=== PATIENT | male | born 1950 | race Caucasian/White ===

== ENCOUNTER 2021-02-10 22:00 | IRF | payer OTHER, SELFPAY ==
--- NOTE | 2021-02-10 23:05 | ADMGEN ---
This patient, Alhaji Paige, was admitted to [facility] Room 226-02 @ 2200. Patient/family oriented to hospital policies and general routines including ID bracelet, bed and alarms, visiting hours, pain management, procedures, bathroom and other care routines, personal items, smoking policy, room service/diet, and visiting hours. Information on how to activate the Rapid Response Team has been discussed. Patient/Family are encouraged to report perceived risks to care and to ask questions if they do not understand what they are told or what they should do.
[2021-02-10 23:09] VITALS: BP 132/53; PULSE 77; RESP 16; TEMP 36.3; O2SAT 100
[2021-02-10 23:10] VITALS: BMI 18.6
[2021-02-10 23:18] VITALS: BP 132/53; PULSE 77; RESP 16; TEMP 36.3; O2SAT 100; BMI 18.6
[2021-02-11] VITALS: PULSE 77; RESP 16; O2SAT 100
[2021-02-11 05:54] LABS: Basophils Percent Auto 0.4 % (0.2-1.2); Eosinophils Absolute Auto 0.2 K/mm3 (0-0.3); Eosinophils Percent Auto 2.2 % (0-4.4); Hematocrit 26.9 % (42.0-52.0); Hemoglobin 8.3 g/dL (14.0-18.0); Immature Granulocyte Absolute 0.06 K/mm3 (0.00-0.031); Immature Granulocyte Percent A 0.8 % (0-0.5); Lymphocytes Absolute Auto 1.38 K/mm3 (0.9-3.2); Lymphocytes Percent Auto 19.1 % (18.3-44.2); Mean Corpuscular HGB Conc 30.9 g/dl (32-36); Mean Corpuscular Volume 90.9 fl (80-100); Mean Platelet Volume 9.2 fl (7.4-10.4); Monocytes Absolute Auto 0.8 K/mm3 (0.1-0.6); Monocytes Percent Auto 11.6 % (2.6-8.5); Neutrophils Absolute Auto 4.8 K/mm3 (1.3-6.7); Neutrophils Percent Auto 65.9 % (45.5-73.1); Platelet Count Result 345 k/mm3 (150-375); Red Blood Count 2.96 M/mm3 (4.6-6.20); Red Cell Distribution Width 14.1 % (11.5-14.5); White Blood Count 7.2 K/mm3 (4.5-10.0)
[2021-02-11 06:00] VITALS: BP 140/56; PULSE 79; RESP 16; TEMP 36.9; O2SAT 100
[2021-02-11 06:07] LABS: Glucose Point of Care 344 (65-105)
[2021-02-11 06:14] LABS: Albumin Level 2.6 g/dL (3.5-5.1)
[2021-02-11 06:15] LABS: Alanine Aminotransferase 16 U/L (4-50); Alkaline Phosphatase 134 U/L (38-126); Anion Gap 0 mmol/L (8-16); Aspartate Amino Transferase 40 U/L (17-59); Bilirubin,Total < 0.1 mg/dL (0.2-1.3); Blood Urea Nitrogen 23 mg/dL (9-20); Calcium 8.2 mg/dL (8.4-10.2); Carbon Dioxide 33 mmol/L (22-30); Chloride 104 mmol/L (98-107); Estimated CRCL calculation 19 ml/min; Estimated Glomerular Filt Rate 26; Glucose 339 mg/dL (75-110); Potassium 4.2 mmol/L (3.4-5.0); Sodium 137 mmol/L (137-145)
[2021-02-11 06:31] LABS: Hemoglobin A1C 11.3 % (<5.7)
[2021-02-11 08:00] VITALS: PULSE 79; RESP 16; O2SAT 100
[2021-02-11] MEDS: CARBIDOPA/LEVODOPA 10/100 MG TABLET 1 TABLET PO ×3 (08:38→17:23)
[2021-02-11] MEDS: glipiZIDE 5 MG TABLET PO ×2 (08:38→17:23)
[2021-02-11] MEDS: ATORVASTATIN 10 MG TABLET PO (08:38)
[2021-02-11] MEDS: ASPIRIN 81 MG ENTERIC TABLET PO (08:38)
[2021-02-11] MEDS: PANTOPRAZOLE SOD SESQUIHYDRATE 20 MG TAB PO (08:38)
--- NOTE | 2021-02-11 08:45 | WPDREHABHP ---
H&P: HPI History of Present Illness Date/Time: 02/11/21 08:45 Chief Complaint: right below-knee amputation Narrative: HISTORY OF PRESENT ILLNESS: The patient's primary rehab impairment category is amputation lower extremity The etiologic diagnosis is right critical lower limb ischemia I saw this patient [id number] on 02/11/2021 The patient is a 71-year-old male with past medical history of peripheral vascular disease, diabetes mellitus, Parkinson's disease, and coronary artery disease who presented to [facility] on 02/02/2021 with increasing pain to his right great toe. Patient sustained a crush injury approximately 5 months ago causing a nonhealing wound. Patient was placed on clindamycin. CTA abdominal aorta with runoff on 11/01/2020 showed severe stenosis in the right proximal and distal S FA with long segment moderate and severe stenosis in the popliteal artery below the knee joint. All 3 runoff vessels were noted to be severely atherosclerotic. Anterior tibial and peroneal arteries were occluded proximally with some distal reconstitution. Disease was also noted on the left lower extremity but was less severe. Vascular surgery was consulted and the patient was scheduled for a right below-knee amputation. He underwent surgical intervention on 02/04/[address] Ritchie. Hospital course: endocrinology was consulted for hemoglobin A1c over 12, blood glucose monitoring and insulin adjusted accordingly. PM& R was consulted with recommendations of inpatient rehab. GI was consulted secondary acute anemia patient underwent upper and lower GI scopes which were unremarkable. Patient remained hemodynamically stable. No DVT prophylaxis in light of acute anemia was noted but patient is transferred on baby aspirin. Therapy was initiated at the acute care facility and the patient transferred to us from [facility] on 02/10/2021 FALLS OR SURGERIES: The patient has had major surgeries in the 100 days prior to admission. Alhaji has had no falls nor injuries in the past year. COVID: The patient has not traveled outside the [place] or had contact with someone who is ill that has traveled outside the [place] in the past 21 days. Patient has not traveled to an area of the [place] that is experiencing no transmission of the Coronavirus and has not had close personal contact with anyone that has. Patient does not have a fever the patient is not experiencing lower respiratory illness. PRIOR LEVEL OF FUNCTION: Eating was [INDEPENDENT] Oral Care was [INDEPENDENT] Toileting Hygiene was [INDEPENDENT] Shower/Bathing was [INDEPENDENT] Upper Body Dressing was [INDEPENDENT] Lower Body Dressing was [INDEPENDENT] Donning/[place] Footwear was [INDEPENDENT] Rolling Left and Right was [INDEPENDENT] Sit to Lying was [INDEPENDENT] Lying to Sitting was [INDEPENDENT] Sit to Stand was [INDEPENDENT] Bed to Chair Transfers was [INDEPENDENT] Toilet Transfers was [INDEPENDENT] Walking was [INDEPENDENT] [>500 feet] with [NO DEVICE] Wheelchair Mobility was [NOT APPLICABLE PRIOR TO ADMISSION] Stairs were [INDEPENDENT] CURRENT LEVEL OF FUNCTION: Eating was Independent Oral Care was supervision Toileting Hygiene was dependent Shower/Bathing was partial to moderate assist Upper Body Dressing was partial to moderate assist Lower Body Dressing was partial to moderate assist Donning/[place] Footwear was substantial to max assist Rolling Left and Right was partial to moderate Sit to Lying was partial to moderate Lying to Sitting was partial to moderate Sit to Stand was partial to moderate assist Bed to Chair Transfers were partial to moderate assist Toilet Transfers were partial to moderate assist Walking was 4 ft with roller walker and partial to moderate assist Wheelchair Mobility was supervision at 100 ft Stairs were not tested GOALS: Our therapists will evaluate the patient and establish the goals. However, upon pre-
[2021-02-11 12:08] LABS: Glucose Point of Care 313 (65-105)
[2021-02-11 14:00] VITALS: BP 162/65; PULSE 85; RESP 18; TEMP 36.2; O2SAT 100
[2021-02-11 17:02] LABS: Glucose Point of Care 268 (65-105)
[2021-02-11 20:35] VITALS: PULSE 93; RESP 18; O2SAT 98
[2021-02-11] MEDS: INSULIN GLARGINE (*BKC) 100 UNITS/ML 15 UNITS SUB-Q (20:40)
[2021-02-11 21:18] LABS: Glucose Point of Care 252 (65-105)
[2021-02-11 22:00] VITALS: BP 145/65; PULSE 93; RESP 18; TEMP 36.1; O2SAT 98
[2021-02-12 05:35] VITALS: BP 154/67; PULSE 78; RESP 16; TEMP 36.7; O2SAT 99
[2021-02-12 06:22] LABS: Glucose Point of Care 126 (65-105)
[2021-02-12 07:09] LABS: Glucose Point of Care 145 (65-105)
[2021-02-12] MEDS: CARBIDOPA/LEVODOPA 10/100 MG TABLET 1 TABLET PO ×3 (10:14→18:16)
[2021-02-12] MEDS: ASPIRIN 81 MG ENTERIC TABLET PO (10:15)
[2021-02-12] MEDS: glipiZIDE 5 MG TABLET PO ×2 (10:15→18:16)
[2021-02-12] MEDS: PANTOPRAZOLE SOD SESQUIHYDRATE 20 MG TAB PO (10:15)
[2021-02-12] MEDS: ATORVASTATIN 10 MG TABLET PO (10:15)
[2021-02-12] MEDS: HYDROcodone/acetaminophen (*CRX) 5-325 MG TABLET 1 TAB PO ×2 (10:17→21:11)
--- NOTE | 2021-02-12 10:43 | WPDNEURORHBP ---
Subjective Date/time seen: 02/12/21 10:43 Interval history: Chief Complaint: right below-knee amputation HISTORY OF PRESENT ILLNESS: The patient is a 71-year-old male with past medical history of peripheral vascular disease, diabetes mellitus, Parkinson's disease, and coronary artery disease who presented to [facility] on 02/02/2021 with increasing pain to his right great toe. Patient sustained a crush injury approximately 5 months ago causing a nonhealing wound. Patient was placed on clindamycin. CTA abdominal aorta with runoff on 11/01/2020 showed severe stenosis in the right proximal and distal SFA with long segment moderate and severe stenosis in the popliteal artery below the knee joint. All 3 runoff vessels were noted to be severely atherosclerotic. Anterior tibial and peroneal arteries were occluded proximally with some distal reconstitution. Disease was also noted on the left lower extremity but was less severe. Vascular surgery was consulted and the patient was scheduled for a right below-knee amputation. He underwent surgical intervention on 02/04/[address] Ritchie. Hospital course: endocrinology was consulted for hemoglobin A1c over 12, blood glucose monitoring and insulin adjusted accordingly. PM& R was consulted with recommendations of inpatient rehab. GI was consulted secondary acute anemia patient underwent upper and lower GI scopes which were unremarkable. Patient remained hemodynamically stable. No DVT prophylaxis in light of acute anemia was noted but patient is transferred on baby aspirin. Therapy was initiated at the acute care facility and the patient transferred to us from [facility] on 02/10/2021 Patient admits to not taking insulin at home. Will obtain community nutrition educator. Review of Systems Review of Systems: All systems reviewed & are unremarkable except as noted in HPI and below Functional Status Ambulation Ability Ambulation Assistive Devices: Walker, Wheeled Transfers Ability Ability to Transfer In/Out of Chair: Minimum Assistance X 1 Exam Narrative: Exam Narrative: patient is seen resting comfortably in bed. Head is normocephalic. Extraocular muscles are intact. Speech is fluent. Heart rate rhythm regular. Lungs are clear to auscultation. Abdomen is soft nontender. Left hand and left lower extremity tremors are noted. Tremors noted to lips. Right upper and right lower extremity demonstrated no tremors. Bilateral upper extremity strength are 4+ out of 5. Left lower extremity strength 4/5. Numbness is noted to the left foot plantar area. Patient is alert and oriented x4. Patient at supervision with s/c propulsion Objective Data Vital Signs Vital Signs: Vital Signs - 24 hr 02/11/21 14:00 02/11/21 20:35 02/11/21 22:00 Temperature 36.2 C L 36.1 C L Pulse Rate 85 93 93 Respiratory Rate 18 18 18 Blood Pressure 162/65 H 145/65 H Pulse Oximetry 100 98 98 02/12/21 05:35 Temperature 36.7 C Pulse Rate 78 Respiratory Rate 16 Blood Pressure 154/67 H Pulse Oximetry 99 Intake/Output Intake/Output: Intake & Output 02/09/21 02/10/21 02/11/21 02/12/21 23:59 23:59 23:59 23:59 Intake Total 720 240 Balance 720 240 Meds/Results Medications: Active Medications Generic Name Dose Route Start Last Admin Trade Name Freq PRN Reason Stop Dose Admin Hydrocodone Bitart/Acetaminophen 1 tab 02/10/21 23:49 02/12/21 10:17 Hydrocodone/Acetaminophen (*Crx) 5-325 Mg Tablet PO 1 tab Q6H PRN Administration Pain Rated 4-6 Aspirin 81 mg 02/11/21 09:00 02/12/21 10:15 Aspirin 81 Mg Enteric Tablet PO 03/13/21 09:01 81 mg DAILY KEN Administration Atorvastatin Calcium 10 mg 02/11/21 09:00 02/12/21 10:15 Atorvastatin 10 Mg Tablet PO 10 mg DAILY KEN Administration Carbidopa/Levodopa 1 tablet 02/11/21 08:00 02/12/21 10:14 Carbidopa/Levodopa 10/100 Mg Tablet PO 1 tablet TIDWM KEN Administration Dextrose 12.5 gm 02/10
[2021-02-12 11:41] LABS: Glucose Point of Care 201 (65-105)
[2021-02-12 14:00] VITALS: BP 161/70; PULSE 87; RESP 18; TEMP 36; O2SAT 100
[2021-02-12 16:46] LABS: Glucose Point of Care 258 (65-105)
[2021-02-12] MEDS: INSULIN GLARGINE (*BKC) 100 UNITS/ML 15 UNITS SUB-Q (21:06)
[2021-02-12 21:35] LABS: Glucose Point of Care 232 (65-105)
[2021-02-12 21:51] VITALS: BP 152/64; PULSE 87; RESP 16; TEMP 36.3; O2SAT 99
[2021-02-13 06:00] VITALS: BP 153/66; PULSE 77; RESP 16; TEMP 36.4; O2SAT 99
[2021-02-13 06:58] LABS: Glucose Point of Care 80 (65-105)
[2021-02-13 08:00] VITALS: PULSE 77; RESP 16; O2SAT 99
[2021-02-13] MEDS: PANTOPRAZOLE SOD SESQUIHYDRATE 20 MG TAB PO (09:17)
[2021-02-13] MEDS: CARBIDOPA/LEVODOPA 10/100 MG TABLET 1 TABLET PO ×3 (09:17→17:39)
[2021-02-13] MEDS: ATORVASTATIN 10 MG TABLET PO (09:18)
[2021-02-13] MEDS: ASPIRIN 81 MG ENTERIC TABLET PO (09:18)
[2021-02-13] MEDS: glipiZIDE 5 MG TABLET PO ×2 (09:18→17:39)
[2021-02-13] MEDS: HYDROcodone/acetaminophen (*CRX) 5-325 MG TABLET 1 TAB PO (11:06)
--- NOTE | 2021-02-13 11:31 | WPDNEURORHBP ---
Subjective Date/time seen: 02/13/21 11:31 Interval history: Chief Complaint: right below-knee amputation HISTORY OF PRESENT ILLNESS: The patient is a 71-year-old male with past medical history of peripheral vascular disease, diabetes mellitus, Parkinson's disease, and coronary artery disease who presented to [facility] on 02/02/2021 with increasing pain to his right great toe. Patient sustained a crush injury approximately 5 months ago causing a nonhealing wound. Patient was placed on clindamycin. CTA abdominal aorta with runoff on 11/01/2020 showed severe stenosis in the right proximal and distal SFA with long segment moderate and severe stenosis in the popliteal artery below the knee joint. All 3 runoff vessels were noted to be severely atherosclerotic. Anterior tibial and peroneal arteries were occluded proximally with some distal reconstitution. Disease was also noted on the left lower extremity but was less severe. Vascular surgery was consulted and the patient was scheduled for a right below-knee amputation. He underwent surgical intervention on 02/04/[address] Ritchie. Hospital course: endocrinology was consulted for hemoglobin A1c over 12, blood glucose monitoring and insulin adjusted accordingly. PM& R was consulted with recommendations of inpatient rehab. GI was consulted secondary acute anemia patient underwent upper and lower GI scopes which were unremarkable. Patient remained hemodynamically stable. No DVT prophylaxis in light of acute anemia was noted but patient is transferred on baby aspirin. Therapy was initiated at the acute care facility and the patient transferred to us from [facility] on 02/10/2021 Patient in good spirits. Patient voices no complaints. Review of Systems Review of Systems: All systems reviewed & are unremarkable except as noted in HPI and below Functional Status Ambulation Ability Ability to Ambulate 10 Feet: Contact Guard Ambulation Assistive Devices: Walker, Wheeled Transfers Ability Ability to Transfer In/Out of Chair: Minimum Assistance X 1 Exam Narrative: Exam Narrative: Patient seen in w/c. . Head is normocephalic. Extraocular muscles are intact. Speech is fluent. Heart rate rhythm regular. Lungs are clear to auscultation. Abdomen is soft nontender. Left hand and left lower extremity tremors are noted. Tremors noted to lips. Right upper and right lower extremity demonstrated no tremors. Bilateral upper extremity strength are 4+ out of 5. Left lower extremity strength 4/5. Numbness is noted to the left foot plantar area. Patient is alert and oriented x4. Transfers were min Objective Data Vital Signs Vital Signs: Vital Signs - 24 hr 02/12/21 14:00 02/12/21 21:51 02/13/21 06:00 Temperature 36.0 C L 36.3 C L 36.4 C L Pulse Rate 87 87 77 Respiratory Rate 18 16 16 Blood Pressure 161/70 H 152/64 H 153/66 H Pulse Oximetry 100 99 99 Intake/Output Intake/Output: Intake & Output 02/10/21 02/11/21 02/12/21 02/13/21 23:59 23:59 23:59 23:59 Intake Total 720 960 240 Balance 720 960 240 Meds/Results Medications: Active Medications Generic Name Dose Route Start Last Admin Trade Name Freq PRN Reason Stop Dose Admin Hydrocodone Bitart/Acetaminophen 1 tab 02/10/21 23:49 02/13/21 11:06 Hydrocodone/Acetaminophen (*Crx) 5-325 Mg Tablet PO 1 tab Q6H PRN Administration Pain Rated 4-6 Aspirin 81 mg 02/11/21 09:00 02/13/21 09:18 Aspirin 81 Mg Enteric Tablet PO 03/13/21 09:01 81 mg DAILY KEN Administration Atorvastatin Calcium 10 mg 02/11/21 09:00 02/13/21 09:18 Atorvastatin 10 Mg Tablet PO 10 mg DAILY KEN Administration Carbidopa/Levodopa 1 tablet 02/11/21 08:00 02/13/21 09:17 Carbidopa/Levodopa 10/100 Mg Tablet PO 1 tablet TIDWM KEN Administration Dextrose 12.5 gm 02/10/21 23:52 Dextrose 50% 25 Gm/50 Ml Syringe IV PUSH PRN PRN Hypoglycemia Protocol Docusate Sodium
[2021-02-13 12:00] LABS: Glucose Point of Care 150 (65-105)
[2021-02-13 12:54] VITALS: BMI 18.6
--- NOTE | 2021-02-13 13:06 | RPD ---
INDIVIDUALIZED PLAN OF CARE FOR Alhaji Paige Brief Synthesis of Pre-Admission Screen, Post-Admission Evaluation and Therapy Evaluations: The patient presents to rehab with a right critical lower limb ischemia s/p right [id number]. Comorbidities include gangrene right toe, peripheral vascular disease, acute blood loss anemia, uncontrolled diabetes mellitus with hyperglycemia, hyperkalemia, and GI bleed. The complexity of the patient's medical management, nursing, and therapy needs require an inpatient rehab hospital stay with a physician-led interdisciplinary team approach. The patient?s needs will be best met in an intensive program vs. at a lower level of care. The patient requires physician services for medical oversight, management of post-op complications in the setting of present comorbidities, management of uncontrolled diabetes mellitus with hyperglycemia, and pain management. Post-op complications have included acute blood loss anemia, and hyperkalemia. The patient requires nursing services for anticoagulation therapy, diabetes training, DVT prophylactics, infection protection, medication management and education, pressure relief, and wound care. Deficits include:ADLs, Balance, Endurance, Family Training/Education, Mobility, Pain Management, ROM, Safety, Strength, Transfers Lining Mechanic/Case Management for: Discharge Planning and Patient/Family Counseling Physical Therapy: 5 days per week for 90 minutes. Treatments may include: Therapeutic Exercise, Gait Training, Neuromuscular Re-education, Transfer Training, Community Reintegration, Bed Mobility, Patient/Family Education, Wheelchair Mobility Group Therapy/Concurrent Therapy Rationales: -Improve attention span during functional activities in a distracted environment. -Enhance problem solving and/or adequate judgment skills during functional activities in a distracted environment. -Promote increased safety awareness in a distracted environment to reduce fall risk with functional tasks, transfers, and ambulation to allow a more safe, self-sufficient return to the home environment. -Improve dynamic balance skills to promote safety and independence with functional activities in a distracted environment for maximum gain. Occupational Therapy: 5 days per week for 90 minutes. Treatments may include: Therapeutic Exercise, Therapeutic Activity, Cognitive Training, Self-Care Transfer Training, Community Reintegration, Home Management, Patient/Family Education, Wheelchair Mobility Training, Energy Conservation Training Group Therapy/Concurrent Therapy Rationales: -Allow therapist to observe and teach generalization and carry-over of skills learned in individual therapy. -Enhance problem solving and sequencing skills during therapeutic activities in a distracted environment. -Promote increased safety awareness in a realistic setting to reduce fall risk with functional tasks due to visual and verbal distractions. -Increase functional level with ADLs, ADL transfers and use of adaptive equipment through therapeutic activities with others while promoting safety to allow a more safe, self-sufficient return home. Medical Prognosis: Good Anticipated Length of Stay: 10 days Rehab Goals: Eating Goal: 06-Independent Oral Hygiene Goal: 06-Independent Toileting Hygiene Goal: 06-Independent Shower/Bathe Self Goal: 05-Setup or Clean Up Assistance Upper Body Dressing Goal: 06-Independent Lower Body Dressing Goal: 06-Independent Putting On/Taking Off Footwear Goal: 06-Independent Rolling Left and Right Goal: 06-Independent Sit to Lying Goal: 06-Independent Lying to Sitting on Side of Bed Goal: 06-Independent Sit to Stand Goal: 06-Independent Chair/[id number] Transfer Goal: 06-Independent Toilet Transfer Goal: 06-Independent Car Transfer Goal: 04-Supervision or Touching Assistance Walk 10' Goal: 03-Partial/Moderate Assistance Walk 50' with Two Turns Goal: 03-Partial/Moderate Assistance Walk 150' Go
[2021-02-13] MEDS: DOCUSATE SODIUM 100 MG CAPSULE PO ×2 (13:23→21:27)
[2021-02-13 14:00] VITALS: BP 146/65; PULSE 88; RESP 14; TEMP 36.2; O2SAT 100
--- NOTE | 2021-02-13 15:56 | PCPTNOTE ---
Geraldine Sullivan PTA completed an inpatient rehab wheelchair evaluation on Alhaji Paige on 02/13/2021. The patient is unable to safely and independently ambulate household distances due to their current impairments. Their diagnosis is Rt BKA and their impairments include decreased strength, decreased endurance, decreased range of motion, decreased balance, lower extremity weakness. Alhaji's weight bearing status is full weight-bearing on L LE and non weight bearing on R residual limb. The patient demonstrates significant functional mobility limitations that impair their ability to participate in mobility-related activities of daily living (MRADLs), including toileting, feeding, dressing, grooming, and bathing in the customary locations in the home. These limitations cannot be sufficiently resolved by the use of an appropriately fitted cane or walker. It is recommended that the patient utilize a wheelchair for functional mobility within the home in order to facilitate optimal safety, independence and participation in all MRADL's and adequately access their home environment on a regular basis. The patient's home provides adequate access between rooms, maneuvering space, and surfaces to accommodate the recommended wheelchair. The use of a wheelchair for functional mobility is strongly recommended and the patient is receptive to using the wheelchair. The use of this wheelchair will significantly improve the patient's ability to participate in MRADLS and the patient will use it on a regular basis in the home. This will facilitate optimal safety, independence, and participation. The patient has demonstrated sufficient physical and mental capabilities needed to safely propel a manual wheelchair that is provided in the home during a typical day. Recommended Wheelchair Frame: STANDARD Recommended Wheelchair Size: 16 X 16 Recommended Wheelchair Cushion: STANDARD Wheelchair Leg Recommendations: LEFT SWING AWAY LEG REST, RIGHT RESIDUAL LIMB SUPPORT LEG REST -Anti-tippers are recommended due to patient demonstrating increased risk for falls. They would benefit from anti-tippers with added safety and stabilization. - Adjustable arm height is recommended because the patient requires an arm height that is different than that which is available using non-adjustable arms. The patient spends at least 2 hours per day in the wheelchair. Geraldine Sullivan PTA 02/13/21 Evaluating Therapist Date I agree with and certify that the above recommendation is medically necessary. Referring Physician Date I agree with and certify that the above recommendation is medically necessary. Referring Physician Date
--- NOTE | 2021-02-13 16:11 | PCPTNOTE ---
Alhaji Paige was evaluated for a wheeled walker on 02/13/2021 by this physical therapist esl instructional assistant. The wheeled walker will resolve patient's mobility limitations and will be used for ADL's within the home. The patient can safely use the wheeled walker. ?The wheeled walker will resolve the patient?s mobility deficits, including decreased balance, decreased endurance, decreased strength, decreased coordination, and non weight bearing precautions on Right residual limb. Geraldine Sullivan, [employer]
[2021-02-13 16:30] VITALS: BMI 18.6
[2021-02-13 17:14] LABS: Glucose Point of Care 133 (65-105)
[2021-02-13 20:00] VITALS: PULSE 77; RESP 16; O2SAT 99
[2021-02-13] MEDS: INSULIN GLARGINE (*BKC) 100 UNITS/ML 8 UNITS SUB-Q (21:32)
[2021-02-13 21:34] LABS: Glucose Point of Care 173 (65-105)
[2021-02-13 22:00] VITALS: BP 147/60; PULSE 77; RESP 16; TEMP 36.1; O2SAT 99
[2021-02-14 06:00] VITALS: BP 150/64; PULSE 86; RESP 18; TEMP 36.2; O2SAT 100
[2021-02-14 06:44] LABS: Glucose Point of Care 62 (65-105)
[2021-02-14 06:52] LABS: Glucose Point of Care 66 (65-105)
[2021-02-14] MEDS: CARBIDOPA/LEVODOPA 10/100 MG TABLET 1 TABLET PO ×3 (07:57→17:12)
[2021-02-14] MEDS: PANTOPRAZOLE SOD SESQUIHYDRATE 20 MG TAB PO (07:57)
[2021-02-14] MEDS: glipiZIDE 5 MG TABLET PO ×2 (07:57→17:12)
[2021-02-14] MEDS: DOCUSATE SODIUM 100 MG CAPSULE PO ×2 (07:58→22:58)
[2021-02-14] MEDS: ATORVASTATIN 10 MG TABLET PO (07:58)
[2021-02-14] MEDS: ASPIRIN 81 MG ENTERIC TABLET PO (07:58)
--- NOTE | 2021-02-14 09:30 | PCCDE ---
diabetes education f/up: Lantus was decreased last night to 8 units however pt BG this am was still low at 62mg/dl. Recommended to reduce by half or consider discontinue Lantus. Discussed with BATSHEVA Canchola and left recommendations. (Dr Salgado in a meeting).
[2021-02-14 11:56] LABS: Glucose Point of Care 125 (65-105)
[2021-02-14 14:00] VITALS: BP 129/69; PULSE 95; RESP 20; TEMP 35.9; O2SAT 100
[2021-02-14 15:37] LABS: Basophils Percent Auto 0.4 % (0.2-1.2); Eosinophils Absolute Auto 0.2 K/mm3 (0-0.3); Eosinophils Percent Auto 1.7 % (0-4.4); Hematocrit 27.3 % (42.0-52.0); Hemoglobin 8.6 g/dL (14.0-18.0); Immature Granulocyte Absolute 0.08 K/mm3 (0.00-0.031); Immature Granulocyte Percent A 0.8 % (0-0.5); Lymphocytes Absolute Auto 1.36 K/mm3 (0.9-3.2); Mean Corpuscular HGB Conc 31.5 g/dl (32-36); Mean Corpuscular Hemoglobin 28.5 pg (26-34); Mean Corpuscular Volume 90.4 fl (80-100); Mean Platelet Volume 9.4 fl (7.4-10.4); Monocytes Absolute Auto 0.8 K/mm3 (0.1-0.6); Neutrophils Absolute Auto 7.3 K/mm3 (1.3-6.7); Neutrophils Percent Auto 75.1 % (45.5-73.1); Platelet Count Result 380 k/mm3 (150-375); Red Blood Count 3.02 M/mm3 (4.6-6.20); Red Cell Distribution Width 15.2 % (11.5-14.5); White Blood Count 9.7 K/mm3 (4.5-10.0)
[2021-02-14 16:44] LABS: Glucose Point of Care 142 mg/dl (65-105)
[2021-02-14] MEDS: SILVERGEL (ELTA) 45 ML 1 APPLIC TOPICAL (17:12)
[2021-02-14] MEDS: CEPHALEXIN 500 MG CAPSULE PO (17:12)
--- NOTE | 2021-02-14 17:32 | WPDNEURORHBP ---
Subjective Date/time seen: 02/14/21 17:32 Interval history: Chief Complaint: right below-knee amputation HISTORY OF PRESENT ILLNESS: The patient is a 71-year-old male with past medical history of peripheral vascular disease, diabetes mellitus, Parkinson's disease, and coronary artery disease who presented to [facility] on 02/02/2021 with increasing pain to his right great toe. Patient sustained a crush injury approximately 5 months ago causing a nonhealing wound. Patient was placed on clindamycin. CTA abdominal aorta with runoff on 11/01/2020 showed severe stenosis in the right proximal and distal SFA with long segment moderate and severe stenosis in the popliteal artery below the knee joint. All 3 runoff vessels were noted to be severely atherosclerotic. Anterior tibial and peroneal arteries were occluded proximally with some distal reconstitution. Disease was also noted on the left lower extremity but was less severe. Vascular surgery was consulted and the patient was scheduled for a right below-knee amputation. He underwent surgical intervention on 02/04/[address] Ritchie. Hospital course: endocrinology was consulted for hemoglobin A1c over 12, blood glucose monitoring and insulin adjusted accordingly. PM& R was consulted with recommendations of inpatient rehab. GI was consulted secondary acute anemia patient underwent upper and lower GI scopes which were unremarkable. Patient remained hemodynamically stable. No DVT prophylaxis in light of acute anemia was noted but patient is transferred on baby aspirin. Therapy was initiated at the acute care facility and the patient transferred to us from [facility] on 02/10/2021 Patient in good spirits. Patient complains of left great toe pain. Review of Systems Review of Systems: All systems reviewed & are unremarkable except as noted in HPI and below Functional Status Ambulation Ability Ability to Ambulate 10 Feet: Minimum Assistance X 1 Ambulation Assistive Devices: Walker, Wheeled Transfers Ability Ability to Transfer In/Out of Chair: Minimum Assistance X 1 Exam Narrative: Exam Narrative: Patient seen in w/c. . Head is normocephalic. Extraocular muscles are intact. Speech is fluent. Heart rate rhythm regular. Lungs are clear to auscultation. Abdomen is soft nontender. Left hand and left lower extremity tremors are noted. Tremors noted to lips. Right upper and right lower extremity demonstrated no tremors. Bilateral upper extremity strength are 4+ out of 5. Left lower extremity strength 4/5. Numbness is noted to the left foot plantar area. Patient is alert and oriented x4. Transfers were min. Left toe reveals redness . Objective Data Vital Signs Vital Signs: Vital Signs - 24 hr 02/13/21 20:00 02/13/21 22:00 02/14/21 06:00 Temperature 36.1 C L 36.2 C L Pulse Rate 77 77 86 Respiratory Rate 16 16 18 Blood Pressure 147/60 H 150/64 H Pulse Oximetry 99 99 100 02/14/21 14:00 Temperature 35.9 C L Pulse Rate 95 Respiratory Rate 20 Blood Pressure 129/69 Pulse Oximetry 100 Intake/Output Intake/Output: Intake & Output 02/11/21 02/12/21 02/13/21 02/14/21 23:59 23:59 23:59 23:59 Intake Total 720 960 720 465 Balance 720 960 720 465 Meds/Results Medications: Active Medications Generic Name Dose Route Start Last Admin Trade Name Freq PRN Reason Stop Dose Admin Hydrocodone Bitart/Acetaminophen 1 tab 02/10/21 23:49 02/13/21 11:06 Hydrocodone/Acetaminophen (*Crx) 5-325 Mg Tablet PO 1 tab Q6H PRN Administration Pain Rated 4-6 Aspirin 81 mg 02/11/21 09:00 02/14/21 07:58 Aspirin 81 Mg Enteric Tablet PO 03/13/21 09:01 81 mg DAILY KEN Administration Atorvastatin Calcium 10 mg 02/11/21 09:00 02/14/21 07:58 Atorvastatin 10 Mg Tablet PO 10 mg DAILY KEN Administration Carbidopa/Levodopa 1 tablet 02/11/21 08:00 02/14/21 17:12 Carbidopa/Levodopa 10/100 Mg Tablet PO 1 tablet TIDWM KEN
[2021-02-14 21:10] VITALS: PULSE 89; RESP 18; O2SAT 99
[2021-02-14 22:00] VITALS: BP 136/66; PULSE 89; RESP 18; TEMP 36.3; O2SAT 99
[2021-02-14] MEDS: INSULIN GLARGINE (*BKC) 100 UNITS/ML SUB-Q (23:03)
[2021-02-14 23:20] LABS: Glucose Point of Care 158 mg/dl (65-105)
[2021-02-15 06:00] VITALS: BP 138/64; PULSE 86; RESP 18; TEMP 36.1; O2SAT 99
[2021-02-15 06:46] LABS: Glucose Point of Care 104 mg/dl (65-105)
[2021-02-15 08:00] VITALS: PULSE 84; RESP 18; O2SAT 99
[2021-02-15] MEDS: ATORVASTATIN 10 MG TABLET PO (09:09)
[2021-02-15] MEDS: glipiZIDE 5 MG TABLET PO ×2 (09:09→17:16)
[2021-02-15] MEDS: ASPIRIN 81 MG ENTERIC TABLET PO (09:09)
[2021-02-15] MEDS: DOCUSATE SODIUM 100 MG CAPSULE PO ×2 (09:10→21:17)
[2021-02-15] MEDS: PANTOPRAZOLE SOD SESQUIHYDRATE 20 MG TAB PO (09:10)
[2021-02-15] MEDS: CARBIDOPA/LEVODOPA 10/100 MG TABLET 1 TABLET PO ×3 (09:10→17:16)
[2021-02-15] MEDS: CEPHALEXIN 250 MG CAPSULE PO ×2 (09:46→21:17)
[2021-02-15 11:39] LABS: Glucose Point of Care 95 mg/dl (65-105)
[2021-02-15] MEDS: SILVERGEL (ELTA) 45 ML 1 APPLIC TOPICAL (12:23)
[2021-02-15 14:00] VITALS: BP 132/67; PULSE 84; RESP 18; TEMP 36.2; O2SAT 99
[2021-02-15 16:37] LABS: Glucose Point of Care 164 mg/dl (65-105)
--- NOTE | 2021-02-15 17:04 | WPDNEURORHBP ---
Subjective Date/time seen: 02/15/21 17:04 Interval history: Chief Complaint: right below-knee amputation HISTORY OF PRESENT ILLNESS: The patient is a 71-year-old male with past medical history of peripheral vascular disease, diabetes mellitus, Parkinson's disease, and coronary artery disease who presented to [facility] on 02/02/2021 with increasing pain to his right great toe. Patient sustained a crush injury approximately 5 months ago causing a nonhealing wound. Patient was placed on clindamycin. CTA abdominal aorta with runoff on 11/01/2020 showed severe stenosis in the right proximal and distal SFA with long segment moderate and severe stenosis in the popliteal artery below the knee joint. All 3 runoff vessels were noted to be severely atherosclerotic. Anterior tibial and peroneal arteries were occluded proximally with some distal reconstitution. Disease was also noted on the left lower extremity but was less severe. Vascular surgery was consulted and the patient was scheduled for a right below-knee amputation. He underwent surgical intervention on 02/04/[address] Ritchie. Hospital course: endocrinology was consulted for hemoglobin A1c over 12, blood glucose monitoring and insulin adjusted accordingly. PM& R was consulted with recommendations of inpatient rehab. GI was consulted secondary acute anemia patient underwent upper and lower GI scopes which were unremarkable. Patient remained hemodynamically stable. No DVT prophylaxis in light of acute anemia was noted but patient is transferred on baby aspirin. Therapy was initiated at the acute care facility and the patient transferred to us from [facility] on 02/10/2021 Patient complaining of heel pain. Patient instructed to have heel off the bed Review of Systems Review of Systems: All systems reviewed & are unremarkable except as noted in HPI and below Functional Status Ambulation Ability Ability to Ambulate 10 Feet: Contact Guard Ambulation Assistive Devices: Walker, Wheeled Transfers Ability Ability to Transfer In/Out of Chair: Minimum Assistance X 1 Exam Narrative: Exam Narrative: Patient seen in w/c. . Head is normocephalic. Extraocular muscles are intact. Speech is fluent. Heart rate rhythm regular. Lungs are clear to auscultation. Abdomen is soft nontender. Left hand and left lower extremity tremors are noted. Tremors noted to lips. Right upper and right lower extremity demonstrated no tremors. Bilateral upper extremity strength are 4+ out of 5. Left lower extremity strength 4/5. Numbness is noted to the left foot plantar area. Patient is alert and oriented x4. Transfers were min. Left toe reveals redness. Mepilex bandaged noted. Heel minimal redness, tender to the touch Objective Data Vital Signs Vital Signs: Vital Signs - 24 hr 02/14/21 21:10 02/14/21 22:00 02/15/21 06:00 Temperature 36.3 C L 36.1 C L Pulse Rate 89 89 86 Respiratory Rate 18 18 18 Blood Pressure 136/66 138/64 Pulse Oximetry 99 99 99 02/15/21 08:00 02/15/21 14:00 Temperature 36.2 C L Pulse Rate 84 84 Respiratory Rate 18 18 Blood Pressure 132/67 Pulse Oximetry 99 99 Intake/Output Intake/Output: Intake & Output 02/12/21 02/13/21 02/14/21 02/15/21 23:59 23:59 23:59 23:59 Intake Total 960 720 705 480 Balance 960 720 705 480 Meds/Results Medications: Active Medications Generic Name Dose Route Start Last Admin Trade Name Freq PRN Reason Stop Dose Admin Hydrocodone Bitart/Acetaminophen 1 tab 02/10/21 23:49 02/13/21 11:06 Hydrocodone/Acetaminophen (*Crx) 5-325 Mg Tablet PO 1 tab Q6H PRN Administration Pain Rated 4-6 Aspirin 81 mg 02/11/21 09:00 02/15/21 09:09 Aspirin 81 Mg Enteric Tablet PO 03/13/21 09:01 81 mg DAILY KEN Administration Atorvastatin Calcium 10 mg 02/11/21 09:00 02/15/21 09:09 Atorvastatin 10 Mg Tablet PO 10 mg DAILY KEN Administration Carbidopa/Levodopa 1 tablet 02/11/21 08:0
[2021-02-15 20:00] VITALS: PULSE 79; RESP 16; O2SAT 99
[2021-02-15 21:38] VITALS: BP 130/51; PULSE 88; RESP 16; TEMP 36.2; O2SAT 99
[2021-02-15] MEDS: INSULIN GLARGINE (*BKC) 100 UNITS/ML SUB-Q (21:46)
[2021-02-15 21:55] LABS: Glucose Point of Care 192 mg/dl (65-105)
[2021-02-16 06:00] VITALS: BP 139/62; PULSE 79; RESP 16; TEMP 36.8; O2SAT 99
[2021-02-16 06:56] LABS: Glucose Point of Care 74 mg/dl (65-105)
[2021-02-16] MEDS: DOCUSATE SODIUM 100 MG CAPSULE PO ×2 (10:13→21:23)
[2021-02-16] MEDS: CARBIDOPA/LEVODOPA 10/100 MG TABLET 1 TABLET PO ×3 (10:14→17:52)
[2021-02-16] MEDS: PANTOPRAZOLE SOD SESQUIHYDRATE 20 MG TAB PO (10:14)
[2021-02-16] MEDS: glipiZIDE 5 MG TABLET PO ×2 (10:14→17:52)
[2021-02-16] MEDS: SILVERGEL (ELTA) 45 ML 1 APPLIC TOPICAL (10:14)
[2021-02-16] MEDS: CEPHALEXIN 250 MG CAPSULE PO ×2 (10:14→21:23)
[2021-02-16] MEDS: ASPIRIN 81 MG ENTERIC TABLET PO (10:14)
[2021-02-16] MEDS: ATORVASTATIN 10 MG TABLET PO (10:14)
[2021-02-16 11:43] LABS: Glucose Point of Care 141 mg/dl (65-105)
[2021-02-16 14:00] VITALS: BP 140/63; PULSE 84; RESP 16; TEMP 36.1; O2SAT 100
--- NOTE | 2021-02-16 14:45 | WPDNEURORHBP ---
Subjective Date/time seen: 02/16/21 14:45 Interval history: Chief Complaint: right below-knee amputation HISTORY OF PRESENT ILLNESS: The patient is a 71-year-old male with past medical history of peripheral vascular disease, diabetes mellitus, Parkinson's disease, and coronary artery disease who presented to [facility] on 02/02/2021 with increasing pain to his right great toe. Patient sustained a crush injury approximately 5 months ago causing a nonhealing wound. Patient was placed on clindamycin. CTA abdominal aorta with runoff on 11/01/2020 showed severe stenosis in the right proximal and distal SFA with long segment moderate and severe stenosis in the popliteal artery below the knee joint. All 3 runoff vessels were noted to be severely atherosclerotic. Anterior tibial and peroneal arteries were occluded proximally with some distal reconstitution. Disease was also noted on the left lower extremity but was less severe. Vascular surgery was consulted and the patient was scheduled for a right below-knee amputation. He underwent surgical intervention on 02/04/[address] Ritchie. Hospital course: endocrinology was consulted for hemoglobin A1c over 12, blood glucose monitoring and insulin adjusted accordingly. PM& R was consulted with recommendations of inpatient rehab. GI was consulted secondary acute anemia patient underwent upper and lower GI scopes which were unremarkable. Patient remained hemodynamically stable. No DVT prophylaxis in light of acute anemia was noted but patient is transferred on baby aspirin. Therapy was initiated at the acute care facility and the patient transferred to us from [facility] on 02/10/2021 Patient continues to complain of left heel pain. Heel is pink and less tender than yesterday Review of Systems Review of Systems: All systems reviewed & are unremarkable except as noted in HPI and below Functional Status Ambulation Ability Ability to Ambulate 10 Feet: Contact Guard Ambulation Assistive Devices: Walker, Wheeled Transfers Ability Ability to Transfer In/Out of Chair: Minimum Assistance X 1 Exam Narrative: Exam Narrative: Patient seen in w/c. . Head is normocephalic. Extraocular muscles are intact. Speech is fluent. Heart rate rhythm regular. Lungs are clear to auscultation. Abdomen is soft nontender. Left hand and left lower extremity tremors are noted. Right upper and right lower extremity demonstrated no tremors. Bilateral upper extremity strength are 4+ out of 5. Left lower extremity strength 4/5. Numbness is noted to the left foot plantar area. Patient is alert and oriented x4. Transfers were min. . Patient with thick skin throughout foot and after cleaning and soaking small pinpoint dark area noted. Foot less red than yesterday. Heel pink and less tender than yesterday. Objective Data Vital Signs Vital Signs: Vital Signs - 24 hr 02/15/21 20:00 02/15/21 21:38 02/16/21 06:00 Temperature 36.2 C L 36.8 C Pulse Rate 79 88 79 Respiratory Rate 16 16 16 Blood Pressure 130/51 L 139/62 Pulse Oximetry 99 99 99 Intake/Output Intake/Output: Intake & Output 02/13/21 02/14/21 02/15/21 02/16/21 23:59 23:59 23:59 23:59 Intake Total 720 705 720 480 Balance 720 705 720 480 Meds/Results Medications: Active Medications Generic Name Dose Route Start Last Admin Trade Name Freq PRN Reason Stop Dose Admin Hydrocodone Bitart/Acetaminophen 1 tab 02/10/21 23:49 02/13/21 11:06 Hydrocodone/Acetaminophen (*Crx) 5-325 Mg Tablet PO 1 tab Q6H PRN Administration Pain Rated 4-6 Aspirin 81 mg 02/11/21 09:00 02/16/21 10:14 Aspirin 81 Mg Enteric Tablet PO 03/13/21 09:01 81 mg DAILY KEN Administration Atorvastatin Calcium 10 mg 02/11/21 09:00 02/16/21 10:14 Atorvastatin 10 Mg Tablet PO 10 mg DAILY KEN Administration Carbidopa/Levodopa 1 tablet 02/11/21 08:00 02/16/21 12:21 Carbidopa/Levodopa 10/100 Mg Tablet PO 1 tabl
[2021-02-16 16:55] LABS: Glucose Point of Care 149 mg/dl (65-105)
[2021-02-16 20:20] LABS: Glucose Point of Care 146 mg/dl (65-105)
[2021-02-16 20:40] VITALS: PULSE 86; RESP 16; O2SAT 100
[2021-02-16] MEDS: INSULIN GLARGINE (*BKC) 100 UNITS/ML SUB-Q (21:27)
[2021-02-16 21:41] VITALS: BP 139/64; PULSE 86; RESP 16; TEMP 36.5; O2SAT 100
[2021-02-17 06:00] VITALS: BP 144/60; PULSE 80; RESP 16; TEMP 36.8; O2SAT 100
[2021-02-17 06:56] LABS: Glucose Point of Care 95 mg/dl (65-105)
[2021-02-17] MEDS: SILVERGEL (ELTA) 45 ML 1 APPLIC TOPICAL (09:19)
[2021-02-17] MEDS: ATORVASTATIN 10 MG TABLET PO (09:19)
[2021-02-17] MEDS: CARBIDOPA/LEVODOPA 10/100 MG TABLET 1 TABLET PO ×3 (09:19→17:50)
[2021-02-17] MEDS: ASPIRIN 81 MG ENTERIC TABLET PO (09:19)
[2021-02-17] MEDS: DOCUSATE SODIUM 100 MG CAPSULE PO ×2 (09:19→21:24)
[2021-02-17] MEDS: glipiZIDE 5 MG TABLET PO ×2 (09:19→17:50)
[2021-02-17] MEDS: CEPHALEXIN 250 MG CAPSULE PO ×2 (09:19→21:23)
[2021-02-17] MEDS: PANTOPRAZOLE SOD SESQUIHYDRATE 20 MG TAB PO (09:19)
[2021-02-17 12:07] LABS: Glucose Point of Care 156 mg/dl (65-105)
[2021-02-17 14:00] VITALS: BP 153/64; PULSE 88; RESP 16; TEMP 36.3; O2SAT 100
--- NOTE | 2021-02-17 14:07 | PCDIET ---
Nutrition Follow-Up Complete: Nutrition Diagnosis: Involuntary weight loss related to decreased appetite as evidenced by patient reporting 20 pound weight loss x 3 months without trying. Nutrition Goal: Patient to consume 75% of meals/supplements or more. Goal met. Patient consuming 75-100% of most meals on diabetic diet. Glucerna Shake 1x daily continued. Last recorded weight is 55.5 kg. Recommend obtaining new weight. Bowel Motility: Last documented BM on 02/14/21. Patient on Colace and Miralax. Labs Reviewed: Glu (156) Meds Noted: Lipitor, Sinemet, Keflex, Colace, Glucotrol, Lantus, Protonix, Miralax Additional Notes: Right leg amputation site with steri strips. Left first toe abrasion. No documented pressure sores. Will continue to monitor with same goal. Nutrition Monitoring and Evaluation: Follow up in 5 days.
--- NOTE | 2021-02-17 15:22 | WPDNEURORHBP ---
Subjective Date/time seen: 02/17/21 15:22 Interval history: Chief Complaint: right below-knee amputation HISTORY OF PRESENT ILLNESS: The patient is a 71-year-old male with past medical history of peripheral vascular disease, diabetes mellitus, Parkinson's disease, and coronary artery disease who presented to [facility] on 02/02/2021 with increasing pain to his right great toe. Patient sustained a crush injury approximately 5 months ago causing a nonhealing wound. Patient was placed on clindamycin. CTA abdominal aorta with runoff on 11/01/2020 showed severe stenosis in the right proximal and distal SFA with long segment moderate and severe stenosis in the popliteal artery below the knee joint. All 3 runoff vessels were noted to be severely atherosclerotic. Anterior tibial and peroneal arteries were occluded proximally with some distal reconstitution. Disease was also noted on the left lower extremity but was less severe. Vascular surgery was consulted and the patient was scheduled for a right below-knee amputation. He underwent surgical intervention on 02/04/[address] Ritchie. Hospital course: endocrinology was consulted for hemoglobin A1c over 12, blood glucose monitoring and insulin adjusted accordingly. PM& R was consulted with recommendations of inpatient rehab. GI was consulted secondary acute anemia patient underwent upper and lower GI scopes which were unremarkable. Patient remained hemodynamically stable. No DVT prophylaxis in light of acute anemia was noted but patient is transferred on baby aspirin. Therapy was initiated at the acute care facility and the patient transferred to us from [facility] on 02/10/2021 Heel pain resolving. Patient voices no other complaints Review of Systems Review of Systems: All systems reviewed & are unremarkable except as noted in HPI and below Functional Status Ambulation Ability Ability to Ambulate 10 Feet: Contact Guard Ambulation Assistive Devices: Walker, Wheeled Transfers Ability Ability to Transfer In/Out of Chair: Minimum Assistance X 1 Exam Narrative: Exam Narrative: Patient seen in w/c. and bed today. Head is normocephalic. Extraocular muscles are intact. Speech is fluent. Heart rate rhythm regular. Lungs are clear to auscultation. Abdomen is soft nontender. Left hand and left lower extremity tremors are noted. Right upper and right lower extremity demonstrated no tremors. Bilateral upper extremity strength are 4+ out of 5. BUE strength fatigues quickly. Left lower extremity strength 4/5. Numbness is noted to the left foot plantar area. Patient is alert and oriented x4. Patient with thick skin throughout foot and after cleaning and soaking small pinpoint dark area noted. Foot less red than yesterday. Heel pink and less tender than yesterday. Objective Data Vital Signs Vital Signs: Vital Signs - 24 hr 02/16/21 20:40 02/16/21 21:41 02/17/21 06:00 Temperature 36.5 C 36.8 C Pulse Rate 86 86 80 Respiratory Rate 16 16 16 Blood Pressure 139/64 144/60 H Pulse Oximetry 100 100 100 Intake/Output Intake/Output: Intake & Output 02/14/21 02/15/21 02/16/21 02/17/21 23:59 23:59 23:59 23:59 Intake Total 252 225 5214 360 Balance 530 757 2203 360 Meds/Results Medications: Active Medications Generic Name Dose Route Start Last Admin Trade Name Freq PRN Reason Stop Dose Admin Hydrocodone Bitart/Acetaminophen 1 tab 02/10/21 23:49 02/13/21 11:06 Hydrocodone/Acetaminophen (*Crx) 5-325 Mg Tablet PO 1 tab Q6H PRN Administration Pain Rated 4-6 Aspirin 81 mg 02/11/21 09:00 02/17/21 09:19 Aspirin 81 Mg Enteric Tablet PO 03/13/21 09:01 81 mg DAILY KEN Administration Atorvastatin Calcium 10 mg 02/11/21 09:00 02/17/21 09:19 Atorvastatin 10 Mg Tablet PO 10 mg DAILY KEN Administration Carbidopa/Levodopa 1 tablet 02/11/21 08:00 02/17/21 12:46 Carbidopa/Levodopa 10/100 Mg Tablet PO 1 tablet TIDWM
[2021-02-17 17:12] LABS: Glucose Point of Care 106 mg/dl (65-105)
[2021-02-17] MEDS: HYDROcodone/acetaminophen (*CRX) 5-325 MG TABLET 1 TAB PO (21:20)
[2021-02-17] MEDS: INSULIN GLARGINE (*BKC) 100 UNITS/ML SUB-Q (21:24)
[2021-02-17 21:52] LABS: Glucose Point of Care 194 mg/dl (65-105)
[2021-02-17 22:00] VITALS: BP 126/54; PULSE 87; RESP 16; TEMP 36.4; O2SAT 98
[2021-02-18 06:00] VITALS: BP 151/64; PULSE 75; RESP 16; TEMP 36.2; O2SAT 99
[2021-02-18 07:17] LABS: Glucose Point of Care 81 mg/dl (65-105)
[2021-02-18 08:06] LABS: Basophils Percent Auto 0.5 % (0.2-1.2); Eosinophils Absolute Auto 0.3 K/mm3 (0-0.3); Eosinophils Percent Auto 3.3 % (0-4.4); Hematocrit 28.8 % (42.0-52.0); Immature Granulocyte Absolute 0.04 K/mm3 (0.00-0.031); Immature Granulocyte Percent A 0.5 % (0-0.5); Lymphocytes Absolute Auto 1.67 K/mm3 (0.9-3.2); Lymphocytes Percent Auto 21.3 % (18.3-44.2); Mean Corpuscular HGB Conc 31.3 g/dl (32-36); Mean Corpuscular Hemoglobin 28.8 pg (26-34); Mean Corpuscular Volume 92.3 fl (80-100); Monocytes Absolute Auto 0.6 K/mm3 (0.1-0.6); Monocytes Percent Auto 8.2 % (2.6-8.5); Neutrophils Absolute Auto 5.2 K/mm3 (1.3-6.7); Neutrophils Percent Auto 66.2 % (45.5-73.1); Platelet Count Result 347 k/mm3 (150-375); Red Blood Count 3.12 M/mm3 (4.6-6.20); Red Cell Distribution Width 15.9 % (11.5-14.5); White Blood Count 7.8 K/mm3 (4.5-10.0)
[2021-02-18 08:18] LABS: Alanine Aminotransferase 14 U/L (4-50); Albumin Level 3.3 g/dL (3.5-5.1); Alkaline Phosphatase 116 U/L (38-126); Anion Gap 3 mmol/L (8-16); Aspartate Amino Transferase 26 U/L (17-59); Bilirubin,Total 0.2 mg/dL (0.2-1.3); Blood Urea Nitrogen 29 mg/dL (9-20); Calcium 8.5 mg/dL (8.4-10.2); Carbon Dioxide 30 mmol/L (22-30); Chloride 105 mmol/L (98-107); Estimated CRCL calculation 24 ml/min; Estimated Glomerular Filt Rate 33; Glucose 79 mg/dL (75-110); Potassium 4.6 mmol/L (3.4-5.0); Sodium 138 mmol/L (137-145)
[2021-02-18] MEDS: ATORVASTATIN 10 MG TABLET PO (08:56)
[2021-02-18] MEDS: CEPHALEXIN 250 MG CAPSULE PO ×2 (08:56→20:25)
[2021-02-18] MEDS: CARBIDOPA/LEVODOPA 10/100 MG TABLET 1 TABLET PO ×3 (08:56→17:51)
[2021-02-18] MEDS: PANTOPRAZOLE SOD SESQUIHYDRATE 20 MG TAB PO (08:56)
[2021-02-18] MEDS: ASPIRIN 81 MG ENTERIC TABLET PO (08:56)
[2021-02-18] MEDS: DOCUSATE SODIUM 100 MG CAPSULE PO ×2 (08:56→20:26)
[2021-02-18] MEDS: glipiZIDE 5 MG TABLET PO ×2 (08:56→17:51)
[2021-02-18] MEDS: SILVERGEL (ELTA) 45 ML 1 APPLIC TOPICAL (08:56)
--- NOTE | 2021-02-18 11:37 | WPDNEURORHBP ---
Subjective Date/time seen: 02/18/21 11:37 Interval history: Chief Complaint: right below-knee amputation HISTORY OF PRESENT ILLNESS: The patient is a 71-year-old male with past medical history of peripheral vascular disease, diabetes mellitus, Parkinson's disease, and coronary artery disease who presented to [facility] on 02/02/2021 with increasing pain to his right great toe. Patient sustained a crush injury approximately 5 months ago causing a nonhealing wound. Patient was placed on clindamycin. CTA abdominal aorta with runoff on 11/01/2020 showed severe stenosis in the right proximal and distal SFA with long segment moderate and severe stenosis in the popliteal artery below the knee joint. All 3 runoff vessels were noted to be severely atherosclerotic. Anterior tibial and peroneal arteries were occluded proximally with some distal reconstitution. Disease was also noted on the left lower extremity but was less severe. Vascular surgery was consulted and the patient was scheduled for a right below-knee amputation. He underwent surgical intervention on 02/04/[address] Ritchie. Hospital course: endocrinology was consulted for hemoglobin A1c over 12, blood glucose monitoring and insulin adjusted accordingly. PM& R was consulted with recommendations of inpatient rehab. GI was consulted secondary acute anemia patient underwent upper and lower GI scopes which were unremarkable. Patient remained hemodynamically stable. No DVT prophylaxis in light of acute anemia was noted but patient is transferred on baby aspirin. Therapy was initiated at the acute care facility and the patient transferred to us from [facility] on 02/10/2021 Patient in good spirits. Patient performing w/c propulsion on ramps. Endurance better Review of Systems Review of Systems: All systems reviewed & are unremarkable except as noted in HPI and below Functional Status Ambulation Ability Ability to Ambulate 10 Feet: Contact Guard Ambulation Assistive Devices: Walker, Wheeled Transfers Ability Ability to Transfer In/Out of Chair: Minimum Assistance X 1 Exam Narrative: Exam Narrative: Patient seen in w/c. and bed today. Head is normocephalic. Extraocular muscles are intact. Speech is fluent. Heart rate rhythm regular. Lungs are clear to auscultation. Abdomen is soft nontender. Left hand and left lower extremity tremors are noted. Right upper and right lower extremity demonstrated no tremors. Bilateral upper extremity strength are 4+ out of 5. BUE strength fatigues quickly. Left lower extremity strength 4/5. Numbness is noted to the left foot plantar area. Patient is alert and oriented x4. Wound cx MRSA Objective Data Vital Signs Vital Signs: Vital Signs - 24 hr 02/17/21 14:00 02/17/21 22:00 02/18/21 06:00 Temperature 36.3 C L 36.4 C L 36.2 C L Pulse Rate 88 87 75 Respiratory Rate 16 16 16 Blood Pressure 153/64 H 126/54 L 151/64 H Pulse Oximetry 100 98 99 Intake/Output Intake/Output: Intake & Output 02/15/21 02/16/21 02/17/21 02/18/21 23:59 23:59 23:59 23:59 Intake Total 720 1080 840 240 Balance 720 1080 840 240 Meds/Results Medications: Active Medications Generic Name Dose Route Start Last Admin Trade Name Freq PRN Reason Stop Dose Admin Hydrocodone Bitart/Acetaminophen 1 tab 02/10/21 23:49 02/17/21 21:20 Hydrocodone/Acetaminophen (*Crx) 5-325 Mg Tablet PO 1 tab Q6H PRN Administration Pain Rated 4-6 Aspirin 81 mg 02/11/21 09:00 02/18/21 08:56 Aspirin 81 Mg Enteric Tablet PO 03/13/21 09:01 81 mg DAILY KEN Administration Atorvastatin Calcium 10 mg 02/11/21 09:00 02/18/21 08:56 Atorvastatin 10 Mg Tablet PO 10 mg DAILY KEN Administration Carbidopa/Levodopa 1 tablet 02/11/21 08:00 02/18/21 08:56 Carbidopa/Levodopa 10/100 Mg Tablet PO 1 tablet TIDWM KEN Administration Cephalexin HCl 250 mg 02/15/21 09:00 02/18/21 08:56 Cephalexin 250 Mg Capsule PO
[2021-02-18] MEDS: HYDROcodone/acetaminophen (*CRX) 5-325 MG TABLET 1 TAB PO (12:06)
[2021-02-18 12:23] LABS: Glucose Point of Care 155 mg/dl (65-105)
[2021-02-18 14:00] VITALS: BP 142/59; PULSE 80; RESP 20; TEMP 36.1; O2SAT 99
[2021-02-18] MEDS: GENTAMICIN SULFATE 0.1% OINT 15 GM TUBE 1 APPLIC TOPICAL ×2 (14:00→20:30)
[2021-02-18 17:02] LABS: Glucose Point of Care 188 mg/dl (65-105)
[2021-02-18] MEDS: INSULIN GLARGINE (*BKC) 100 UNITS/ML SUB-Q (20:26)
[2021-02-18 20:27] LABS: Glucose Point of Care 309 mg/dl (65-105)
[2021-02-18 21:52] VITALS: BP 131/59; PULSE 83; RESP 18; TEMP 36.3; O2SAT 99
[2021-02-19 06:00] VITALS: BP 148/59; PULSE 73; RESP 16; TEMP 36.3; O2SAT 100
[2021-02-19] MEDS: GENTAMICIN SULFATE 0.1% OINT 15 GM TUBE 1 APPLIC TOPICAL ×3 (06:00→21:45)
[2021-02-19 06:43] LABS: Glucose Point of Care 113 mg/dl (65-105)
[2021-02-19] MEDS: ATORVASTATIN 10 MG TABLET PO (10:03)
[2021-02-19] MEDS: PANTOPRAZOLE SOD SESQUIHYDRATE 20 MG TAB PO (10:03)
[2021-02-19] MEDS: DOCUSATE SODIUM 100 MG CAPSULE PO ×2 (10:03→21:44)
[2021-02-19] MEDS: glipiZIDE 5 MG TABLET PO ×2 (10:03→18:25)
[2021-02-19] MEDS: CEPHALEXIN 250 MG CAPSULE PO ×2 (10:03→21:44)
[2021-02-19] MEDS: ASPIRIN 81 MG ENTERIC TABLET PO (10:03)
[2021-02-19] MEDS: CARBIDOPA/LEVODOPA 10/100 MG TABLET 1 TABLET PO ×3 (10:03→18:25)
[2021-02-19 12:13] LABS: Glucose Point of Care 136 mg/dl (65-105)
[2021-02-19] MEDS: HYDROcodone/acetaminophen (*CRX) 5-325 MG TABLET 1 TAB PO (13:14)
[2021-02-19 14:00] VITALS: BP 132/58; PULSE 92; RESP 14; TEMP 36.2; O2SAT 99
--- NOTE | 2021-02-19 15:45 | WPDNEURORHBP ---
Subjective Date/time seen: 02/19/21 15:45 Interval history: Chief Complaint: right below-knee amputation HISTORY OF PRESENT ILLNESS: The patient is a 71-year-old male with past medical history of peripheral vascular disease, diabetes mellitus, Parkinson's disease, and coronary artery disease who presented to [facility] on 02/02/2021 with increasing pain to his right great toe. Patient sustained a crush injury approximately 5 months ago causing a nonhealing wound. Patient was placed on clindamycin. CTA abdominal aorta with runoff on 11/01/2020 showed severe stenosis in the right proximal and distal SFA with long segment moderate and severe stenosis in the popliteal artery below the knee joint. All 3 runoff vessels were noted to be severely atherosclerotic. Anterior tibial and peroneal arteries were occluded proximally with some distal reconstitution. Disease was also noted on the left lower extremity but was less severe. Vascular surgery was consulted and the patient was scheduled for a right below-knee amputation. He underwent surgical intervention on 02/04/[address] Ritchie. Hospital course: endocrinology was consulted for hemoglobin A1c over 12, blood glucose monitoring and insulin adjusted accordingly. PM& R was consulted with recommendations of inpatient rehab. GI was consulted secondary acute anemia patient underwent upper and lower GI scopes which were unremarkable. Patient remained hemodynamically stable. No DVT prophylaxis in light of acute anemia was noted but patient is transferred on baby aspirin. Therapy was initiated at the acute care facility and the patient transferred to us from [facility] 02/19/21 Son Bharat here for caregiver training. Patient states that he does not have a bed and sleeps on the floor. Floor transfers were performed. Patient also does not like SB and plans to perform stand pivot transfers. Patient will need commode . He will not be able to enter the bathroom Review of Systems Review of Systems: All systems reviewed & are unremarkable except as noted in HPI and below Functional Status Ambulation Ability Ability to Ambulate 10 Feet: Standby Assistance Ambulation Assistive Devices: Walker, Wheeled Transfers Ability Ability to Transfer In/Out of Chair: Independent Exam Narrative: Exam Narrative: Patient seen during family training. Head is normocephalic. Extraocular muscles are intact. Speech is fluent. Heart rate rhythm regular. Lungs are clear to auscultation. Abdomen is soft nontender. Left hand and left lower extremity tremors are noted. Right upper and right lower extremity demonstrated no tremors. Bilateral upper extremity strength are 4+ out of 5. BUE strength fatigues quickly. Left lower extremity strength 4/5. Numbness is noted to the left foot plantar area. Patient is alert and oriented x4. Wound cx MRSA Objective Data Vital Signs Vital Signs: Vital Signs - 24 hr 02/18/21 21:52 02/19/21 06:00 02/19/21 14:00 Temperature 36.3 C L 36.3 C L 36.2 C L Pulse Rate 83 73 92 Respiratory Rate 18 16 14 Blood Pressure 131/59 L 148/59 H 132/58 L Pulse Oximetry 99 100 99 Intake/Output Intake/Output: Intake & Output 02/16/21 02/17/21 02/18/21 02/19/21 23:59 23:59 23:59 23:59 Intake Total 2550 176 9564 480 Balance 1929 028 6389 480 Meds/Results Medications: Active Medications Generic Name Dose Route Start Last Admin Trade Name Freq PRN Reason Stop Dose Admin Hydrocodone Bitart/Acetaminophen 1 tab 02/10/21 23:49 02/19/21 13:14 Hydrocodone/Acetaminophen (*Crx) 5-325 Mg Tablet PO 1 tab Q6H PRN Administration Pain Rated 4-6 Aspirin 81 mg 02/11/21 09:00 02/19/21 10:03 Aspirin 81 Mg Enteric Tablet PO 03/13/21 09:01 81 mg DAILY KEN Administration Atorvastatin Calcium 10 mg 02/11/21 09:00 02/19/21 10:03 Atorvastatin 10 Mg Tablet PO 10 mg DAILY KEN Administration Carbidopa/Levodopa 1 tablet 02/11/21 08:0
[2021-02-19 16:42] LABS: Glucose Point of Care 168 mg/dl (65-105)
[2021-02-19 20:00] VITALS: PULSE 80; RESP 16; O2SAT 100
[2021-02-19] MEDS: INSULIN GLARGINE (*BKC) 100 UNITS/ML SUB-Q (21:44)
[2021-02-19 21:54] LABS: Glucose Point of Care 152 mg/dl (65-105)
[2021-02-19 22:00] VITALS: BP 129/59; PULSE 80; RESP 16; TEMP 36.2; O2SAT 100
[2021-02-20 06:00] VITALS: BP 147/63; PULSE 84; RESP 16; TEMP 36.6; O2SAT 99
[2021-02-20] MEDS: GENTAMICIN SULFATE 0.1% OINT 15 GM TUBE 1 APPLIC TOPICAL ×3 (06:34→21:07)
[2021-02-20 06:59] LABS: Glucose Point of Care 76 mg/dl (65-105)
[2021-02-20] MEDS: ASPIRIN 81 MG ENTERIC TABLET PO (09:39)
[2021-02-20] MEDS: DOCUSATE SODIUM 100 MG CAPSULE PO ×2 (09:39→21:07)
[2021-02-20] MEDS: glipiZIDE 5 MG TABLET PO ×2 (09:39→17:31)
[2021-02-20] MEDS: CARBIDOPA/LEVODOPA 10/100 MG TABLET 1 TABLET PO ×3 (09:39→17:31)
[2021-02-20] MEDS: ATORVASTATIN 10 MG TABLET PO (09:39)
[2021-02-20] MEDS: PANTOPRAZOLE SOD SESQUIHYDRATE 20 MG TAB PO (09:39)
[2021-02-20 11:56] LABS: Glucose Point of Care 134 mg/dl (65-105)
[2021-02-20 14:00] VITALS: BP 148/62; PULSE 84; RESP 20; TEMP 36.3; O2SAT 100
[2021-02-20 17:19] LABS: Glucose Point of Care 142 mg/dl (65-105)
--- NOTE | 2021-02-20 17:22 | WPDNEURORHBP ---
Subjective Date/time seen: 02/20/21 17:22 Interval history: Chief Complaint: right below-knee amputation HISTORY OF PRESENT ILLNESS: The patient is a 71-year-old male with past medical history of peripheral vascular disease, diabetes mellitus, Parkinson's disease, and coronary artery disease who presented to [facility] on 02/02/2021 with increasing pain to his right great toe. Patient sustained a crush injury approximately 5 months ago causing a nonhealing wound. Patient was placed on clindamycin. CTA abdominal aorta with runoff on 11/01/2020 showed severe stenosis in the right proximal and distal SFA with long segment moderate and severe stenosis in the popliteal artery below the knee joint. All 3 runoff vessels were noted to be severely atherosclerotic. Anterior tibial and peroneal arteries were occluded proximally with some distal reconstitution. Disease was also noted on the left lower extremity but was less severe. Vascular surgery was consulted and the patient was scheduled for a right below-knee amputation. He underwent surgical intervention on 02/04/[address] Ritchie. Hospital course: endocrinology was consulted for hemoglobin A1c over 12, blood glucose monitoring and insulin adjusted accordingly. PM& R was consulted with recommendations of inpatient rehab. GI was consulted secondary acute anemia patient underwent upper and lower GI scopes which were unremarkable. Patient remained hemodynamically stable. No DVT prophylaxis in light of acute anemia was noted but patient is transferred on baby aspirin. Therapy was initiated at the acute care facility and the patient transferred to us from [facility] 02/19/21 Son Bharat here for caregiver training. Patient states that he does not have a bed and sleeps on the floor. Floor transfers were performed. Patient also does not like SB and plans to perform stand pivot transfers. Patient will need commode . He will not be able to enter the bathroom Review of Systems Review of Systems: All systems reviewed & are unremarkable except as noted in HPI and below Functional Status Ambulation Ability Ability to Ambulate 10 Feet: Standby Assistance Ambulation Assistive Devices: Walker, Wheeled Transfers Ability Ability to Transfer In/Out of Chair: Independent Exam Narrative: Exam Narrative: Patient seen during family training. Head is normocephalic. Extraocular muscles are intact. Speech is fluent. Heart rate rhythm regular. Lungs are clear to auscultation. Abdomen is soft nontender. Left hand and left lower extremity tremors are noted. Right upper and right lower extremity demonstrated no tremors. Bilateral upper extremity strength are 4+ out of 5. BUE strength fatigues quickly. Left lower extremity strength 4/5. Numbness is noted to the left foot plantar area. Patient is alert and oriented x4. Large toe with punctate black lesion unchanged. No drainage. Objective Data Vital Signs Vital Signs: Vital Signs - 24 hr 02/19/21 20:00 02/19/21 22:00 02/20/21 06:00 Temperature 36.2 C L 36.6 C Pulse Rate 80 80 84 Respiratory Rate 16 16 16 Blood Pressure 129/59 L 147/63 H Pulse Oximetry 100 100 99 02/20/21 14:00 Temperature 36.3 C L Pulse Rate 84 Respiratory Rate 20 Blood Pressure 148/62 H Pulse Oximetry 100 Intake/Output Intake/Output: Intake & Output 02/17/21 02/18/21 02/19/21 02/20/21 23:59 23:59 23:59 23:59 Intake Total 840 1200 960 480 Balance 840 1200 960 480 Meds/Results Medications: Active Medications Generic Name Dose Route Start Last Admin Trade Name Freq PRN Reason Stop Dose Admin Hydrocodone Bitart/Acetaminophen 1 tab 02/10/21 23:49 02/19/21 13:14 Hydrocodone/Acetaminophen (*Crx) 5-325 Mg Tablet PO 1 tab Q6H PRN Administration Pain Rated 4-6 Aspirin 81 mg 02/11/21 09:00 02/20/21 09:39 Aspirin 81 Mg Enteric Tablet PO 03/13/21 09:01 81 mg DAILY KEN Administration Atorvastatin Calcium 10
[2021-02-20 20:24] LABS: Glucose Point of Care 218 mg/dl (65-105)
[2021-02-20] MEDS: INSULIN GLARGINE (*BKC) 100 UNITS/ML SUB-Q (21:04)
[2021-02-20 22:16] VITALS: BP 140/61; PULSE 79; RESP 20; TEMP 36.3; O2SAT 97
[2021-02-21] MEDS: GENTAMICIN SULFATE 0.1% OINT 15 GM TUBE 1 APPLIC TOPICAL ×2 (05:30→15:07)
[2021-02-21 06:00] VITALS: BP 139/67; PULSE 73; RESP 20; TEMP 36.2; O2SAT 100
[2021-02-21 06:10] LABS: Glucose Point of Care 140 mg/dl (65-105)
[2021-02-21 08:00] VITALS: PULSE 73; RESP 20; O2SAT 100
[2021-02-21] MEDS: ASPIRIN 81 MG ENTERIC TABLET PO (10:17)
[2021-02-21] MEDS: glipiZIDE 5 MG TABLET PO (10:17)
[2021-02-21] MEDS: PANTOPRAZOLE SOD SESQUIHYDRATE 20 MG TAB PO (10:17)
[2021-02-21] MEDS: ATORVASTATIN 10 MG TABLET PO (10:17)
[2021-02-21] MEDS: DOCUSATE SODIUM 100 MG CAPSULE PO (10:18)
[2021-02-21] MEDS: CARBIDOPA/LEVODOPA 10/100 MG TABLET 1 TABLET PO ×2 (10:18→15:06)
[2021-02-21 11:42] LABS: Glucose Point of Care 227 mg/dl (65-105)
[2021-02-21 14:00] VITALS: BP 138/71; PULSE 93; RESP 16; O2SAT 97
--- NOTE | 2021-02-21 15:01 | PM.DS ---
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 and doubling over with thick sock and ampushield (2) Diabetic neuropathy: Code(s): E11.40 - Type 2 diabetes mellitus with diabetic neuropathy, unspecified Status: Acute Assessment and Plan: Monitor (3) Peripheral vascular disease: Code(s): I73.9 - Peripheral vascular disease, unspecified Status: Acute Assessment and Plan: asa/lipitor (4) Coronary artery disease: Code(s): I25.10 - Atherosclerotic heart disease of [place] coronary artery without angina pectoris Status: Acute Assessment and Plan: asa (5) Parkinsons disease: Code(s): G20 - Parkinson's disease Status: Acute Assessment and Plan: Sinemet 10/100 t.i.d. 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 Currently patient is on Lantus 15 units subcu HS and glipizide 5 mg b.i.d. (7) Diabetic ulcer of left great toe: Code(s): E11.621 - Type 2 diabetes mellitus with foot ulcer; L97.529 - Non-pressure chronic ulcer of other part of left foot with unspecified severity Status: Acute Assessment and Plan: Wound RN had been notified. MRSA noted of wound. Very small essentially dry area noted. Will add Gentamycin ointment only (8) Deep tissue injury: Code(s): T14.8XXA - Other injury of unspecified body region, initial encounter Status: Acute Assessment and Plan: Left heel with Mepelex and no redness nor pain today. DS: Summary Hospital Course Reason for hospitalization: ADMISSION FUNCTION: Eating was Independent Oral Care was supervision Toileting Hygiene was dependent Shower/Bathing was partial to moderate assist Upper Body Dressing was partial to moderate assist Lower Body Dressing was partial to moderate assist Donning/[place] Footwear was substantial to max assist Rolling Left and Right was partial to moderate Sit to Lying was partial to moderate Lying to Sitting was partial to moderate Sit to Stand was partial to moderate assist Bed to Chair Transfers were partial to moderate assist Toilet Transfers were partial to moderate assist Walking was 4 ft with roller walker and partial to moderate assist Wheelchair Mobility was supervision at 100 ft Stairs were not tested GOALS: Eating [INDEPENDENT] Oral Care [INDEPENDENT] Toileting Hygiene [INDEPENDENT] Shower/Bathing set up] Upper Body Dressing [INDEPENDENT] Lower Body Dressing [INDEPENDENT] Donning/[place] Footwear [INDEPENDENT] Rolling Left and Right [INDEPENDENT] Sit to Lying [INDEPENDENT] Lying to Sitting [INDEPENDENT] Sit to Stand [INDEPENDENT] Bed to Chair Transfers [INDEPENDENT] Toilet Transfers [INDEPENDENT] Car Transfers [INDEPENDENT] Walking 10' partial to mod assist Walking 50' with Two Turns partial to mod assist Walking 150' partial to mod assist Curb or Step partial to mod assist 4 Steps substantial to max assist 12 Steps not applicable Picking Up Object not assessed Wheelchair Mobility 50' INDEPENDENT Wheelchair Mobility 150' supervision DISCHARGE PERFORMANCE: Eating setup Oral Care INDEPENDENT Toileting Hygiene setup Shower/Bathing setup Upper Body Dressing INDEPENDENT Lower Body Dressing [INDEPENDENT] Donning/[place] Footwear [INDEPENDENT] Rolling Left and Right [INDEPENDENT] Sit to Lying [INDEPENDENT] Lying to Sitting [INDEPENDENT] Sit to Stand [INDEPENDENT] Bed to Chair Transfers
== END 2021-02-21 15:00 | disposition home health service (06) | DRG 560 ==
PROVIDERS: Admitting Provider Physical Medicine & Rehabilitation; Visit Provider Physical Medicine & Rehabilitation
DX: Z47.81 Encounter for orthopedic aftercare following surgical amputation (principal); D62 Acute posthemorrhagic anemia; Z89.511 Acquired absence of right leg below knee; E11.51 Type 2 diabetes mellitus with diabetic peripheral angiopathy without gangrene; E11.65 Type 2 diabetes mellitus with hyperglycemia; E87.5 Hyperkalemia; G20 Parkinson's disease; I25.10 Atherosclerotic heart disease of native coronary artery without angina pectoris; Z79.84 Long term (current) use of oral hypoglycemic drugs; E11.42 Type 2 diabetes mellitus with diabetic polyneuropathy; Z22.322 Carrier or suspected carrier of Methicillin resistant Staphylococcus aureus; E11.621 Type 2 diabetes mellitus with foot ulcer; L97.529 Non-pressure chronic ulcer of other part of left foot with unspecified severity
CPT/HCPCS: 36415; 80053; 82948; 83036; 85025; 87070; 87147; 87186; 87205; 97110; 97116; 97162; 97166; 97530; 97535; A9270; J1815